=== PATIENT | male | born 1980 | race African-American/Black ===

== ENCOUNTER 2018-11-22 19:44 | Emergency (ER) | payer MEDICARE ==
[~2018-11-22] VITALS: Ht 177.8 cm; Wt 80.7 kg
[2018-11-22 20:02] VITALS: BP 142/92
[2018-11-22] MEDS ORDERED: BACLOFEN 10 MG TAB PO ONE (20:45)
[2018-11-22] MEDS ORDERED: methylPREDNISolone SOD SUCC 125 MG/2 ML VL IM ONE (20:45)
[2018-11-22] MEDS ORDERED: HYDROcodone-ACET 10/325MG TAB PO ONE (20:45)
== END 2018-11-22 21:09 | disposition home or self-care (01) ==
LOC: ER 19:50
DX: M51.26 Other intervertebral disc displacement, lumbar region (principal); F17.210 Nicotine dependence, cigarettes, uncomplicated
CPT/HCPCS: 72100; 96372; 99283; J2930

== ENCOUNTER 2018-12-10 00:05 | Emergency (ER) | payer MEDICAID ==
[~2018-12-10] VITALS: Ht 177.8 cm; Wt 79.4 kg
[2018-12-10 01:12] LABS: Basophils # (auto) 0 uL; Basophils % (auto) 0.7 % (0.0-2.0); Eosinophils # (auto) 0.1 uL; Eosinophils % (auto) 2.1 % (0.0-7.0); Hematocrit 44.7 % (41.0-53.0); Hemoglobin 14.8 g/dL (13.5-17.5); Lymphocytes # (auto) 2.4 uL; Lymphocytes % (auto) 36.5 % (10.0-50.0); Mean Corpuscular Hemoglobin 29.5 pg (28.0-32.0); Mean Corpuscular Volume 89.3 fL (80.0-100.0); Monocytes # (auto) 0.4 uL; Monocytes % (auto) 6.9 % (0.0-12.0); Neutrophils # (auto) 3.5 uL; Neutrophils % (auto) 53.8 % (37.0-80.0); Nucleated Red Blood Cells % 0.1 %; Platelet Count (auto) 180 10^3/uL (140-450); Red Blood Cells 5.01 10^6/uL (4.5-5.90); White Blood Cell 6.5 10^3/uL (4.4-10.8)
[2018-12-10 01:28] LABS: Albumin 3.8 g/dL (3.4-5.0); BUN/Creatinine Ratio 9.8; Calcium 8.6 mg/dL (8.5-10.1); Potassium 3.4 mmol/L (3.5-5.1)
[2018-12-10 01:31] LABS: Bilirubin, Total 0.3 mg/dL (0.2-1.0); Total Protein 8.5 g/dL (6.4-8.2)
[2018-12-10] MEDS ORDERED: FUROSEMIDE 20 MG TAB PO ONE ×2 (03:45→04:00)
[2018-12-10] MEDS ORDERED: methylPREDNISolone SOD SUCC 125 MG/2 ML VL IM ONE ×2 (03:45→04:00)
[2018-12-10] MEDS ORDERED: cefTRIAXone SOD 1,000 MG VL IM ONE ×2 (03:45→04:00)
[2018-12-10] MEDS ORDERED: HYDROcodone-ACET 10/325MG TAB PO ONE ×2 (03:45→04:00)
[2018-12-10] MEDS ORDERED: POTASSIUM CHL 20 Meq TABLET PO ONE ×2 (03:45→04:00)
[2018-12-10 04:11] VITALS: BP 133/95
== END 2018-12-10 04:49 | disposition home or self-care (01) ==
LOC: ER 00:05
DX: M79.605 Pain in left leg (principal); M79.604 Pain in right leg; H92.01 Otalgia, right ear; G44.201 Tension-type headache, unspecified, intractable
CPT/HCPCS: 36415; 80053; 81002; 83880; 85025; 96372; 99283; J0696; J2930

== ENCOUNTER 2019-05-31 14:21 | Emergency (ER) | payer MEDICAID ==
[~2019-05-31] VITALS: Ht 177.8 cm; Wt 77.1 kg
[2019-05-31 15:49] VITALS: BP 132/72
[2019-05-31] MEDS ORDERED: KETOROLAC TROMETH 60MG/2ML VIAL IM ONE (16:15)
[2019-05-31] MEDS ORDERED: METHOCARBAMOL 500 MG TAB PO ONE (16:15)
== END 2019-05-31 17:02 | disposition home or self-care (01) ==
LOC: EDBD 14:21 → ER 14:39
DX: M54.41 Lumbago with sciatica, right side (principal); F17.210 Nicotine dependence, cigarettes, uncomplicated
CPT/HCPCS: 72100; 96372; 99283; J1885

== ENCOUNTER 2019-09-09 03:02 | Emergency (ER) | payer MEDICAID ==
[~2019-09-09] VITALS: Ht 177.8 cm; Wt 74.8 kg
[2019-09-09 03:20] VITALS: BP 140/86
== END 2019-09-09 07:17 | disposition left against medical advice (07) ==
LOC: ER 03:03
DX: M79.673 Pain in unspecified foot (principal); Z53.21 Procedure and treatment not carried out due to patient leaving prior to being seen by health care provider
CPT/HCPCS: 82962

== ENCOUNTER → 2020-06-26 | Emergency (ER) | payer MEDICAID ==
[~2020-06-26] VITALS: Ht 177.8 cm; Wt 74.8 kg
[~2020-06-26] MED LIST: KETOROLAC TROMETH 30 MG/ML 1ML VIAL IV ONE
[2020-06-26 23:06] LABS: Basophils # (auto) 0 10 ^3/uL (0-0.2); Basophils % (auto) 0.7 % (0.0-2.0); Eosinophils # (auto) 0.2 10 ^3/uL (0-0.8); Hematocrit 38.9 % (41.0-53.0); Hemoglobin 13.2 g/dL (13.5-17.5); Lymphocytes # (auto) 2.4 10 ^3/uL (0.4-5.4); Lymphocytes % (auto) 39.9 % (10.0-50.0); Mean Corpuscular Hemoglobin 30.9 pg (28.0-32.0); Mean Corpuscular Hgb Conc. 33.9 g/dL (32.0-36.0); Monocytes # (auto) 0.6 10 ^3/uL (0-1.3); Neutrophils # (auto) 2.9 10 ^3/uL (1.6-8.6); Neutrophils % (auto) 47.4 % (37.0-80.0); Nucleated Red Blood Cells % 0.1 %; Platelet Count (auto) 176 10^3/uL (140-450); Red Blood Cells 4.27 10^6/uL (4.5-5.90); Red Cell Distribution Width 14.3 % (11.8-14.3); White Blood Cell 6.1 10^3/uL (4.4-10.8)
[2020-06-26 23:24] LABS: Albumin 3.5 g/dL (3.4-5.0); Calcium 8.7 mg/dL (8.5-10.1); Potassium 4.1 mmol/L (3.5-5.1)
[2020-06-26 23:26] LABS: BUN/Creatinine Ratio 13.8
[2020-06-26 23:28] LABS: Bilirubin, Total 0.2 mg/dL (0.2-1.0); Total Protein 7.3 g/dL (6.4-8.2)
[2020-06-27 01:00] VITALS: BP 114/86
[2020-06-27 01:36] LABS: Urine Amorphous Crystal FEW /hpf (None Seen); Urine Bacteria NONE SEEN /hpf (None Seen); Urine Blood Negative /uL (Negative); Urine Specific Gravity 1.022 (1.001-1.035); Urine WBC 6 /hpf (0 - 3)
== END | disposition home or self-care (01) ==
LOC: EDUNIT# 21:30 → EDBD 21:36 → ER 21:39
DX: S33.5XXA Sprain of ligaments of lumbar spine, initial encounter (principal); F17.210 Nicotine dependence, cigarettes, uncomplicated; X58.XXXA Exposure to other specified factors, initial encounter; Y93.89 Activity, other specified; Y92.89 Other specified places as the place of occurrence of the external cause; Y99.8 Other external cause status
CPT/HCPCS: 36415; 74176; 80053; 81001; 85025; 96374

== ENCOUNTER 2021-01-13 15:59 | Emergency (ER) | payer MEDICAID ==
[~2021-01-13] VITALS: Ht 177.8 cm; Wt 77.1 kg
[2021-01-13 18:14] VITALS: BP 136/83
== END 2021-01-13 18:13 | disposition home or self-care (01) ==
LOC: ER 15:59
DX: L03.116 Cellulitis of left lower limb (principal)
CPT/HCPCS: 93971

== ENCOUNTER 2021-07-04 05:20 | Emergency (ER) | payer MEDICAID ==
[~2021-07-04] VITALS: Ht 182.9 cm; Wt 83.9 kg
[2021-07-04 06:09] LABS: Basophils # (auto) 0 10 ^3/uL (0-0.2); Basophils % (auto) 0.7 % (0.0-2.0); Eosinophils # (auto) 0.2 10 ^3/uL (0-0.8); Eosinophils % (auto) 2.7 % (0.0-7.0); Hematocrit 39.9 % (41.0-53.0); Lymphocytes % (auto) 30.3 % (10.0-50.0); Mean Corpuscular Hemoglobin 29.5 pg (28.0-32.0); Mean Corpuscular Hgb Conc. 32.5 g/dL (32.0-36.0); Mean Corpuscular Volume 90.6 fL (80.0-100.0); Monocytes # (auto) 0.5 10 ^3/uL (0-1.3); Neutrophils % (auto) 59.3 % (37.0-80.0); Nucleated Red Blood Cells % 0.1 %; Red Cell Distribution Width 14.8 % (11.8-14.3); White Blood Cell 6.8 10^3/uL (4.4-10.8)
[2021-07-04 06:16] LABS: INR 1.07 (0.9-1.15); Partial Thromboplastin Time 25.4 sec (23.6-33.0)
[2021-07-04 06:20] LABS: Anion Gap 7 (5-15); Blood Urea Nitrogen 10 mg/dL (7-18); Calcium 8.1 mg/dL (8.5-10.1); Carbon Dioxide 27 mmol/L (21-32); Chloride 105 mmol/L (98-107); Glucose 139 mg/dL (74-106); Magnesium 2.2 mg/dL (1.6-2.6); Potassium 3.3 mmol/L (3.5-5.1); Sodium 139 mmol/L (136-145)
[2021-07-04 06:23] LABS: Alanine Aminotransferase 25 U/L (16-61); Aspartate Aminotransferase 21 U/L (15-37); BUN/Creatinine Ratio 8.7; GFR African American 89 mL/min; GFR Non-African American 74 mL/min
[2021-07-04 06:29] LABS: Alkaline Phosphatase 68 U/L (45-117); Bilirubin, Total 0.2 mg/dL (0.2-1.0); Total Protein 7.1 g/dL (6.4-8.2)
[2021-07-04] MEDS ORDERED: POTASSIUM EFFERVESENT TAB 25 MEQ PO ONE (12:15)
[2021-07-04 12:40] VITALS: BP 111/73
== END 2021-07-04 12:55 | disposition home or self-care (01) ==
LOC: EDBD 05:20 → ER 05:20
DX: L03.116 Cellulitis of left lower limb (principal); E87.6 Hypokalemia; I10 Essential (primary) hypertension; E46 Unspecified protein-calorie malnutrition; R73.9 Hyperglycemia, unspecified; Z68.25 Body mass index [BMI] 25.0-25.9, adult; Z88.8 Allergy status to other drugs, medicaments and biological substances
CPT/HCPCS: 36415; 71045; 80053; 83735; 83880; 84484; 85025; 85379; 85610; 85730; 93005; 93971

== ENCOUNTER 2021-11-22 10:07 | Emergency (ER) | payer MEDICAID ==
[~2021-11-22] VITALS: Ht 177.8 cm; Wt 86.2 kg
[2021-11-22 10:16] VITALS: BP 126/70
[2021-11-22 11:32] LABS: Basophils # (auto) 0 10 ^3/uL (0-0.2); Basophils % (auto) 0.7 % (0.0-2.0); Eosinophils # (auto) 0.1 10 ^3/uL (0-0.8); Eosinophils % (auto) 2.1 % (0.0-7.0); Hematocrit 39.8 % (41.0-53.0); Hemoglobin 13.2 g/dL (13.5-17.5); Lymphocytes # (auto) 1.6 10 ^3/uL (0.4-5.4); Lymphocytes % (auto) 27.4 % (10.0-50.0); Mean Corpuscular Hemoglobin 29.7 pg (28.0-32.0); Mean Corpuscular Hgb Conc. 33.2 g/dL (32.0-36.0); Mean Corpuscular Volume 89.3 fL (80.0-100.0); Monocytes # (auto) 0.4 10 ^3/uL (0-1.3); Monocytes % (auto) 6.1 % (0.0-12.0); Neutrophils # (auto) 3.7 10 ^3/uL (1.6-8.6); Neutrophils % (auto) 63.7 % (37.0-80.0); Nucleated Red Blood Cells % 0.1 %; Red Blood Cells 4.46 10^6/uL (4.5-5.90); Red Cell Distribution Width 14.4 % (11.8-14.3); White Blood Cell 5.8 10^3/uL (4.4-10.8)
[2021-11-22 11:45] LABS: Albumin 3.4 g/dL (3.4-5.0); Calcium 8.5 mg/dL (8.5-10.1); Potassium 4.1 mmol/L (3.5-5.1)
[2021-11-22 11:53] LABS: BUN/Creatinine Ratio 19.6; Bilirubin, Total 0.2 mg/dL (0.2-1.0); Total Protein 7.6 g/dL (6.4-8.2)
== END 2021-11-22 13:29 | disposition left against medical advice (07) ==
LOC: EDBD 10:07 → ER 10:07
DX: R07.89 Other chest pain (principal); Z88.6 Allergy status to analgesic agent
CPT/HCPCS: 36415; 80053; 83880; 84484; 85025; 93005

== ENCOUNTER 2022-02-05 16:26 | Emergency (ER) | payer MEDICAID ==
[~2022-02-05] VITALS: Ht 177.8 cm; Wt 81.6 kg
[2022-02-05 16:27] VITALS: BP 139/91
[2022-02-05] MEDS ORDERED: HYDROcodone-ACET 5/325MG TAB PO ONE (17:30)
[2022-02-05] MEDS ORDERED: HYDR-4902 PO (19:23)
== END 2022-02-05 19:27 | disposition home or self-care (01) ==
LOC: ER 16:26
DX: S23.3XXA Sprain of ligaments of thoracic spine, initial encounter (principal); S00.93XA Contusion of unspecified part of head, initial encounter; S60.221A Contusion of right hand, initial encounter; M54.50 Low back pain, unspecified; R51.9 Headache, unspecified; Z88.8 Allergy status to other drugs, medicaments and biological substances; V49.9XXA Car occupant (driver) (passenger) injured in unspecified traffic accident, initial encounter; Y93.89 Activity, other specified; Y92.410 Unspecified street and highway as the place of occurrence of the external cause; Y99.8 Other external cause status
CPT/HCPCS: 70450; 72128; 72131; 73120

== ENCOUNTER 2022-05-21 05:27 | Emergency (ER) | payer MEDICAID ==
[~2022-05-21] VITALS: Ht 172.7 cm; Wt 81.8 kg
[~2022-05-21 05:27] MED LIST changes: +HYDR-4902 PO; -KETOROLAC TROMETH 30 MG/ML 1ML VIAL IV ONE
[2022-05-21 06:56] LABS: Basophils # (auto) 0.1 10 ^3/uL (0-0.2); Basophils % (auto) 0.7 % (0.0-2.0); Eosinophils # (auto) 0.1 10 ^3/uL (0-0.8); Eosinophils % (auto) 1.5 % (0.0-7.0); Hematocrit 39.1 % (41.0-53.0); Hemoglobin 12.8 g/dL (13.5-17.5); Lymphocytes # (auto) 1.5 10 ^3/uL (0.4-5.4); Lymphocytes % (auto) 19.9 % (10.0-50.0); Mean Corpuscular Hemoglobin 29.1 pg (28.0-32.0); Mean Corpuscular Hgb Conc. 32.7 g/dL (32.0-36.0); Monocytes # (auto) 0.5 10 ^3/uL (0-1.3); Monocytes % (auto) 7.1 % (0.0-12.0); Neutrophils # (auto) 5.3 10 ^3/uL (1.6-8.6); Neutrophils % (auto) 70.8 % (37.0-80.0); Nucleated Red Blood Cells % 0.1 %; Red Blood Cells 4.39 10^6/uL (4.5-5.90); Red Cell Distribution Width 14.6 % (11.8-14.3); White Blood Cell 7.5 10^3/uL (4.4-10.8)
[2022-05-21 07:13] LABS: Albumin 3.5 g/dL (3.4-5.0); Calcium 8.8 mg/dL (8.5-10.1); Potassium 3.8 mmol/L (3.5-5.1)
[2022-05-21 07:18] LABS: BUN/Creatinine Ratio 18.3; Bilirubin, Total 0.3 mg/dL (0.2-1.0); Total Protein 8.1 g/dL (6.4-8.2)
[2022-05-21 10:20] VITALS: BP 122/83
[2022-05-21] MEDS ORDERED: IBU600T PO (10:21)
== END 2022-05-21 10:50 | disposition home or self-care (01) ==
LOC: EDBD 05:27 → ER 05:27
DX: T14.8XXA Other injury of unspecified body region, initial encounter (principal); F41.9 Anxiety disorder, unspecified; Z79.899 Other long term (current) drug therapy; Z88.8 Allergy status to other drugs, medicaments and biological substances; X58.XXXA Exposure to other specified factors, initial encounter; Y93.89 Activity, other specified; Y92.89 Other specified places as the place of occurrence of the external cause; Y99.8 Other external cause status
CPT/HCPCS: 36415; 80053; 83880; 84484; 85025; 93005

== ENCOUNTER 2022-06-04 00:31 | Emergency (ER) | payer MEDICAID ==
[~2022-06-04] VITALS: Ht 177.8 cm; Wt 81.8 kg
[~2022-06-04 00:31] MED LIST changes: +IBU600T PO
[2022-06-04 01:35] VITALS: BP 121/67
[2022-06-04] MEDS ORDERED: FURO1TAB31 PO (03:44)
[2022-06-04] MEDS ORDERED: BACDST PO (03:44)
== END 2022-06-04 04:05 | disposition home or self-care (01) ==
LOC: ER 00:31
DX: L03.115 Cellulitis of right lower limb (principal); R60.0 Localized edema; Z79.1 Long term (current) use of non-steroidal anti-inflammatories (NSAID); Z79.899 Other long term (current) drug therapy; Z88.8 Allergy status to other drugs, medicaments and biological substances

== ENCOUNTER 2022-07-04 01:03 | Emergency (ER) | payer MEDICAID ==
[~2022-07-04] VITALS: Ht 177.8 cm; Wt 80.0 kg
[~2022-07-04 01:03] MED LIST changes: +BACDST PO; +FURO1TAB31 PO
[2022-07-04] MEDS ORDERED: ASPirin 325 MG TAB PO ONE (01:15)
[2022-07-04 02:08] LABS: Basophils # (auto) 0.1 10 ^3/uL (0-0.2); Basophils % (auto) 0.8 % (0.0-2.0); Eosinophils # (auto) 0.2 10 ^3/uL (0-0.8); Eosinophils % (auto) 3.4 % (0.0-7.0); Hematocrit 40.4 % (41.0-53.0); Hemoglobin 13.7 g/dL (13.5-17.5); Lymphocytes # (auto) 2.1 10 ^3/uL (0.4-5.4); Lymphocytes % (auto) 32.2 % (10.0-50.0); Mean Corpuscular Hgb Conc. 33.8 g/dL (32.0-36.0); Mean Corpuscular Volume 88.7 fL (80.0-100.0); Monocytes # (auto) 0.5 10 ^3/uL (0-1.3); Monocytes % (auto) 7.2 % (0.0-12.0); Neutrophils # (auto) 3.8 10 ^3/uL (1.6-8.6); Neutrophils % (auto) 56.4 % (37.0-80.0); Nucleated Red Blood Cells % 0.1 %; Red Blood Cells 4.55 10^6/uL (4.5-5.90); Red Cell Distribution Width 14.9 % (11.8-14.3); White Blood Cell 6.6 10^3/uL (4.4-10.8)
[2022-07-04 02:31] LABS: Albumin 3.8 g/dL (3.4-5.0); Calcium 8.8 mg/dL (8.5-10.1); Potassium 4.1 mmol/L (3.5-5.1)
[2022-07-04 02:34] LABS: Bilirubin, Total 0.4 mg/dL (0.2-1.0); Total Protein 7.8 g/dL (6.4-8.2)
[2022-07-04 03:40] LABS: Urine Bacteria NONE SEEN /hpf (None Seen); Urine Blood Negative /uL (Negative); Urine Specific Gravity 1.006 (1.001-1.035); Urine WBC 2 /hpf (0 - 3)
[2022-07-04 03:51] LABS: Alcohol, Urine < 3.0 mg/dL (0-10); Amphetamine Screen, Urine POSITIVE (NEGATIVE); Barbiturate Scree,Urine NEGATIVE (NEGATIVE); Benzodiazephine Screen, Urine NEGATIVE (NEGATIVE); Cannabinoid Screen, Urine NEGATIVE (NEGATIVE); Cocaine Screen, Urine NEGATIVE (NEGATIVE); Opiate Scree,Urine NEGATIVE (NEGATIVE); Phencyclidine Screen, Urine NEGATIVE (NEGATIVE)
[2022-07-04 06:17] VITALS: BP 136/83
== END 2022-07-04 06:12 | disposition home or self-care (01) ==
LOC: EDBD 01:03 → ER 01:03
DX: R07.89 Other chest pain (principal); F41.9 Anxiety disorder, unspecified; Z79.1 Long term (current) use of non-steroidal anti-inflammatories (NSAID); Z79.899 Other long term (current) drug therapy; Z88.8 Allergy status to other drugs, medicaments and biological substances
CPT/HCPCS: 36415; 80053; 80307; 81001; 82962; 83880; 84484; 85025; 93005

== ENCOUNTER 2022-08-07 01:42 | Emergency (ER) | payer MEDICAID ==
[~2022-08-07] VITALS: Ht 177.8 cm; Wt 88.0 kg
[2022-08-07] MEDS ORDERED: KETOROLAC TROMETH 60MG/2ML VIAL IM ONE (07:00)
[2022-08-07] MEDS ORDERED: ACET-1080 PO (07:29)
[2022-08-07] MEDS ORDERED: GABA300C10 PO (07:29)
[2022-08-07 07:48] VITALS: BP 132/77
== END 2022-08-07 07:50 | disposition home or self-care (01) ==
LOC: EDBD 01:42 → EDUNIT# 01:42 → ER 01:46
DX: G89.29 Other chronic pain (principal); M54.16 Radiculopathy, lumbar region; M54.50 Low back pain, unspecified; Z79.1 Long term (current) use of non-steroidal anti-inflammatories (NSAID); Z79.899 Other long term (current) drug therapy; Z88.8 Allergy status to other drugs, medicaments and biological substances
CPT/HCPCS: 96372; 99283; J1885

== ENCOUNTER 2023-02-15 03:20 | Emergency (ER) | payer MEDICAID ==
[~2023-02-15] VITALS: Ht 182.9 cm; Wt 87.2 kg
[~2023-02-15 03:20] MED LIST changes: +ACET-1080 PO; +GABA300C10 PO
[2023-02-15 04:45] LABS: Basophils # (auto) 0.1 10 ^3/uL (0-0.2); Basophils % (auto) 0.7 % (0.0-2.0); Eosinophils # (auto) 0.2 10 ^3/uL (0-0.8); Eosinophils % (auto) 2.8 % (0.0-7.0); Hematocrit 37.1 % (41.0-53.0); Hemoglobin 12.2 g/dL (13.5-17.5); Lymphocytes # (auto) 2.2 10 ^3/uL (0.4-5.4); Lymphocytes % (auto) 26.7 % (10.0-50.0); Mean Corpuscular Hemoglobin 29.1 pg (28.0-32.0); Monocytes # (auto) 0.7 10 ^3/uL (0-1.3); Monocytes % (auto) 9.1 % (0.0-12.0); Neutrophils # (auto) 4.9 10 ^3/uL (1.6-8.6); Neutrophils % (auto) 60.7 % (37.0-80.0); Nucleated Red Blood Cells % 0.1 %; Red Blood Cells 4.22 10^6/uL (4.5-5.90); Red Cell Distribution Width 14.4 % (11.8-14.3); White Blood Cell 8.1 10^3/uL (4.4-10.8)
[2023-02-15 04:52] LABS: INR 1.04 (0.9-1.15); Partial Thromboplastin Time 29.7 sec (24.6-33.4)
[2023-02-15 04:58] LABS: Albumin 3.5 g/dL (3.4-5.0); Calcium 8.9 mg/dL (8.5-10.1); Magnesium 2.4 mg/dL (1.6-2.6); Potassium 3.8 mmol/L (3.5-5.1)
[2023-02-15 05:03] LABS: BUN/Creatinine Ratio 11.4 (10.0-20.0); Bilirubin, Total 0.3 mg/dL (0.2-1.0); Total Protein 7.7 g/dL (6.4-8.2)
[2023-02-15 08:49] VITALS: BP 138/87
[2023-02-15] MEDS ORDERED: FUROSEMIDE 20 MG TAB PO ONE (09:45)
[2023-02-15] MEDS ORDERED: HYDROcodone-ACET 5/325MG TAB PO ONE (09:45)
== END 2023-02-15 11:21 | disposition home or self-care (01) ==
LOC: ER 03:20 → EDBD 03:20 → ER 11:08
DX: R22.43 Localized swelling, mass and lump, lower limb, bilateral (principal); M79.605 Pain in left leg; M79.604 Pain in right leg; F12.10 Cannabis abuse, uncomplicated; Z88.6 Allergy status to analgesic agent
CPT/HCPCS: 36415; 71045; 80053; 83735; 83880; 84484; 85025; 85610; 85730; 93005; 93970

== ENCOUNTER 2024-02-20 14:39 | Emergency (ER) | payer MEDICAID ==
[~2024-02-20] VITALS: Ht 177.8 cm; Wt 90.7 kg
[~2024-02-20 14:39] MED LIST changes: +GABA-1250 PO; -GABA300C10 PO
[2024-02-20 14:55] VITALS: BP 143/88; PULSE 116; RESP 15; O2SAT 99
[2024-02-21] MEDS ORDERED: ACET500T58 PO (05:12)
== END 2024-02-20 18:20 | disposition left against medical advice (07) ==
LOC: ER 14:39
DX: M79.672 Pain in left foot (principal); Z53.21 Procedure and treatment not carried out due to patient leaving prior to being seen by health care provider; W50.0XXA Accidental hit or strike by another person, initial encounter; Y93.89 Activity, other specified; Y92.89 Other specified places as the place of occurrence of the external cause; Y99.8 Other external cause status

== ENCOUNTER 2024-02-21 00:51 | Emergency (ER) | payer MEDICAID ==
[~2024-02-21] VITALS: Ht 177.8 cm; Wt 91.6 kg
[2024-02-21 04:52] VITALS: BP 129/82; PULSE 101; RESP 16; TEMP 97.5; O2SAT 99
[2024-02-21] MEDS ORDERED: ACET500T58 PO (05:12)
== END 2024-02-21 05:21 | disposition home or self-care (01) ==
LOC: ER 00:51
DX: S93.505A Unspecified sprain of left lesser toe(s), initial encounter (principal); F15.90 Other stimulant use, unspecified, uncomplicated; Z88.8 Allergy status to other drugs, medicaments and biological substances; Z79.899 Other long term (current) drug therapy; W22.8XXA Striking against or struck by other objects, initial encounter; Y93.89 Activity, other specified; Y92.89 Other specified places as the place of occurrence of the external cause; Y99.8 Other external cause status
CPT/HCPCS: 73630

== ENCOUNTER 2024-12-21 01:31 | Emergency (ER) | payer OTHER, MEDICAID ==
[~2024-12-21] VITALS: Ht 177.8 cm; Wt 97.5 kg
[~2024-12-21 01:31] MED LIST changes: +ACET500T58 PO
[2024-12-21 02:12] LABS: Basophils # (auto) 0.1 10 ^3/uL (0-0.2); Basophils % (auto) 1.1 % (0.0-2.0); Eosinophils # (auto) 0.2 10 ^3/uL (0-0.8); Eosinophils % (auto) 2.2 % (0.0-7.0); Hematocrit 42.9 % (41.0-53.0); Hemoglobin 14.5 g/dL (13.5-17.5); Lymphocytes # (auto) 2.2 10 ^3/uL (0.4-5.4); Lymphocytes % (auto) 27.1 % (10.0-50.0); Mean Corpuscular Hemoglobin 30.3 pg (28.0-32.0); Mean Corpuscular Hgb Conc. 33.8 g/dL (32.0-36.0); Mean Corpuscular Volume 89.6 fL (80.0-100.0); Monocytes # (auto) 0.4 10 ^3/uL (0-1.3); Monocytes % (auto) 4.7 % (0.0-12.0); Neutrophils # (auto) 5.3 10 ^3/uL (1.6-8.6); Neutrophils % (auto) 64.9 % (37.0-80.0); Platelet Count (auto) 170 10^3/uL (140-450); Red Blood Cells 4.79 10^6/uL (4.5-5.90); Red Cell Distribution Width 15.1 % (11.8-14.3); White Blood Cell 8.1 10^3/uL (4.4-10.8)
[2024-12-21 02:21] LABS: Chloride 104 mmol/L (98-107); Potassium 3.5 mmol/L (3.5-5.1); Sodium 141 mmol/L (136-145)
[2024-12-21 02:22] VITALS: BP 157/73; TEMP 98
[2024-12-21 02:22] LABS: Anion Gap 8 (5-15); Calcium 9.5 mg/dL (8.7-10.4); Carbon Dioxide 29 mmol/L (20-31)
[2024-12-21 02:27] LABS: BUN/Creatinine Ratio 5.8 (10.0-20.0); Glucose 86 mg/dL (74-106)
[2024-12-21 02:29] LABS: Blood Urea Nitrogen 8 mg/dL (9-23)
--- NOTE | 2024-12-21 02:30 | DVH ---
Examination: BLDVT CLINICAL INDICATION: DVT rule out. COMPARISON: None. TECHNIQUE: Using real-time ultrasonic imaging and color Doppler the deep venous system of both lower extremities was studied from the level of the common femoral veins to the posterior tibial veins. FINDINGS: Ultrasound examination of bilateral common femoral veins, bilateral deep femoral veins, th e proximal, middle and distal segments of bilateral superficial femoral veins, bilateral popliteal ve ins, and bilateral posterior tibial veins reveal normal phasicity and compression and augmentation. No thrombus was visualized. IMPRESSION: There is no evidence of superficial or deep venous thrombosis in bilateral lower extremi ty venous systems. Electronically Signed 12/21/2024 02:28 Sherley Velasquez
[2024-12-21 02:32] LABS: Lactic Acid w/Reflex 2.1 mmol/L (0.4-2.0)
[2024-12-21] MEDS: KETOROLAC TROMETH 30 MG/ML 1ML VIAL IV ONE (02:55)
[2024-12-21] MEDS: FUROSEMIDE 40 MG/4 ML VIAL IV ONE (02:55)
[2024-12-21] MEDS: SODIUM CHLORIDE 0.9% 1,000 ML IV ONE (02:56)
[2024-12-21] MEDS ORDERED: IBUP-1455 PO (03:06)
[2024-12-21] MEDS ORDERED: FURO1TAB33 PO (03:06)
--- NOTE | 2024-12-21 03:06 | ED.PDOC ---
Musculoskeletal HPI Comments Patient is a 44-year-old male who arrives the ED today for evaluation of bilateral lower extremity swelling and left foot pain. Patient has a long history of vascular concerns and is [facility] being [facility]. patient arrives stating that he has had pain in the legs and was had more swelling. Patient denies any history of congestive heart failure. Patient denies any fever nausea or vomiting. Patient was mildly ta chycardic at arrival. Chief Complaint: Lower Extremity Time Seen by MD: 01:33 Primary Care Provider: Unknown Reviewed Notes: Nurses Notes Allergies: Coded Allergies: Ibuprofen (Verified Allergy, Unknown, 07/04/21) Home Meds Active Scripts Acetaminophen (Acetaminophen) 500 Mg Tab, 500 MG PO Q4HR PRN, #30 TAB 0 Refills Prov:TARA CHAPARRO 02/21/24 Gabapentin (Gabapentin) 300 Mg Cap, 1 CAP PO TID, #30 CAP 1 Refill Prov:BERNARDINO NAVA 08/07/22 Acetaminophen (Tylenol 8 Hour Arthritis) 650 Mg Tab, 650 MG PO TID, #30 TAB Prov:BERNARDINO NAVA 08/07/22 Furosemide (Lasix) 40 Mg Tab, 40 MG PO DAILY for 10 Days, #10 TAB Prov:PEGGY CHAVEZ 06/04/22 Sulfamethoxazole W/Trimethopri (Bactrim Ds Tablet) 1 Tab Tb, 1 TAB PO BID for 10 Days, #20 TAB Prov:PEGGY CHAVEZ 06/04/22 Ibuprofen Micronized (MOTRIN TABLET) 600 Mg Tb, 600 MG PO TID PRN for 5 Days, #15 TAB *Black box warning-NSAIDS can increase risk of NV & hypertension, GI irritation, ulceration, bleed, perferation. Do not use post cardiac surgery. Use short duration/lowest effective dose. Prov:HUMBLE VALENTE MD 05/21/22 Hydrocodone-Acetaminophen (Hydrocodone Bitartrate/AC 5-325 mg) 1 Tab Tab, 1 TAB PO QID, #20 TAB 0 Refills Prov:MITZI LOPEZ MD 02/05/22 Information Source: Patient Mode of Arrival: Ambulatory Location: Bilateral Extremity Location: Leg Timing: Months Prehospital treatment: Treatment Hand Dominance: Right Mechanism: Unknown Circumstances: Unknown Symptoms: Swelling, Pain DVT Risk Factors: NONE Past Medical History PAST MEDICAL HISTORY: Denies Past Medical History (Other): Vascular concerns Surgical History: Denies all surgeries Family History Family History: Unknown Social History Smoker: Non-Smoker Alcohol: Denies ETOH Use Drugs: Marijuana Lives In: Home Constitutional: denies: chills, diaphoresis, fatigue, fever, malaise, sweats, weakness, others EENTM: denies: blurred vision, double vision, ear bleeding, ear discharge, ear drainage, ear pain, ear ringing, eye pain, eye redness, hearing loss, mouth pain, mouth swelling, nasal discharge, nose bleeding, nose congestion, nose pain, photophobia, tearing, throat pain, throat swelling, voice changes, others Respiratory: denies: cough, hemoptysis, orthopnea, SOB at rest, shortness of breath, SOB with excertion, stridor, wheezing, others Cardiovascular: denies: chest pain, dizzy spells, diaphoresis, Dyspnea on exertion, edema, irregular heart beat, left arm pain, lightheadedness, palpitations, PND, syncope, others Gastrointestinal: denies: abdomen distended, abdominal pain, blood streaked bowels, constipated, diarrhea, dysphagia, difficulty swallowing, hematemesis, melena, nausea, poor appetite, poor fluid intake, rectal bleeding, rectal pain, vomiting, others Genitourinary: denies: burning, dysuria, flank pain, frequency, hematuria, incontinence, penile discharge, penile sore, pain, testicle pain, testicle swelling, urgency, others Neurological: denies: dizziness, fainting, headache, left sided numbness, left sided weakness, numbness, paresthesia, pre-existing deficit, right sided numbness, right sided weakness, seizure, speech problems, tingling, tremors, weakness, others Musculoskeletal: reports: others ( bilateral lower extremity swelling with left toe pain); denies: back pain, gout, joint pain, joint swelling, muscle pain, muscle stiffness, neck pain Integumetry: denies: bruises, change in color, change in hair/nails, dryness, laceration, lesions, lumps, rash, wounds, others Allergic/Immunocompromised: denies: Difficulty Healing, Frequent Infections, Hives, Itching, others Hematologic/Lymphatic: denies: anemia, blood clots, easy bleeding, easy bruising, swollen glands, others Endocrine: denies: excessive hunger, excessive sweating, excessive thirst, excessive urination, flushing, intolerance to cold, intolerance to heat, unexplained weight gain, unexplained weight loss, others Psychiatric: denies: anxiety, bipolar disorder, depression, hopeless, panic disorder, schizophrenia, sleepless, suicidal, others Physical Exam General Appearance: Moderate Distress ( [id number] distress due to anxiety related to his leg swelling and Pain), Normal HEENT: Normal ENT Inspection, Pharynx Normal, TMs Normal Neck: Full Range of Motion, Non-Tender, Normal, Normal Inspection Respiratory: Chest Non-Tender, Lungs Clear, No Accessory Muscle Use, No Respiratory Distress, Normal Breath Sounds Cardiovascular: No Edema, No JVD, No Murmur, No Gallop, Normal Peripheral Pulses, Regular Rate/Rhythm Breast Exam: Deferred Gastrointestinal: No Organomegaly, Non Tender, No Pulsatile Mass, Normal Bowel Sounds, Soft Genitalia: Deferred Pelvic: Deferred Rectal: Deferred Extremities: Other ( patient has a 1+ pitting edema noted to bilateral lower extremities. Taut skin from peripheral edema concerns. Left great toe is tender to palpation throughout. Mild edema noted. No ecchymosis. Patient can not bear weight.) Neurologic: Alert, No Motor Deficits, Normal Affect, Normal Mood, No Sensory Deficits Cerebellar Function: Normal Reflexes: Normal Skin: Dry, Normal Color, Warm Lymphatic: No Adenopathy Was a procedure done? Was a procedure done?: No Differential Diagnosis EXT Differential Diagnosis: Other ( Sepsis, electrolyte abnormality, CHF, peripheral edema, toe fracture, toe contusion) X-Ray, Labs, Meds, VS Vital Signs Date Time Temp Pulse Resp B/P (MAP) Pulse Ox O2 Delivery O2 Flow Rate FiO2 12/21/24 02:22 98.0 104 20 157/73 (101) 98 98.0 12/21/24 01:44 98.0 101 20 113/75 (88) 100 98.0 Lab Test 12/21/24 01:52 Range/Units White Blood Count 8.1 4.4-10.8 10^3/uL Red Blood Count 4.79 4.5-5.90 10^6/uL Hemoglobin 14.5 13.5-17.5 g/dL Hematocrit 42.9 41.0-53.0 % Mean Corpuscular Volume 89.6 80.0-100.0 fL Mean Corpuscular Hemoglobin 30.3 28.0-32.0 pg Mean Corpuscular Hemoglobin Concent 33.8 32.0-36.0 g/dL Red Cell Distribution Width 15.1 H 11.8-14.3 % Platelet Count 170 140-450 10^3/uL Mean Platelet Volume 9.1 6.9-10.8 fL Neutrophils (%) (Auto) 64.9 37.0-80.0 % Lymphocytes (%) (Auto) 27.1 10.0-50.0 % Monocytes (%) (Auto) 4.7 0.0-12.0 % Eosinophils (%) (Auto) 2.2 0.0-7.0 % Basophils (%) (Auto) 1.1 0.0-2.0 % Neutrophils # (Auto) 5.3 1.6-8.6 10 ^3/uL Lymphocytes # (Auto) 2.2 0.4-5.4 10 ^3/uL Monocytes # (Auto) 0.4 0-1.3 10 ^3/uL Eosinophils # (Auto) 0.2 0-0.8 10 ^3/uL Basophils # (Auto) 0.1 0-0.2 10 ^3/uL Nucleated Red Blood Cells 0.0 % Sodium Level 141 136-145 mmol/L Potassium Level 3.5 3.5-5.1 mmol/L Chloride Level 104 98-107 mmol/L Carbon Dioxide Level 29 20-31 mmol/L Anion Gap 8 5-15 Blood Urea Nitrogen 8 L 9-23 mg/dL Creatinine 1.37 H 0.700-1.30 mg/dL Glomerular Filtration Rate Calc 64 >90 mL/min BUN/Creatinine Ratio 5.8 L 10.0-20.0 Serum Glucose 86 74-106 mg/dL Lactic Acid Level 2.1 *H 0.4-2.0 mmol/L Calcium Level 9.5 8.7-10.4 mg/dL Troponin I High Sensitivity 6 </=54 ng/L B-Type Natriuretic Peptide 2.84 0-100 pg/mL X-Ray, Labs, Meds, VS Comment All studies performed the ED were evaluated by me personally. Doppler studies of bilateral lower extremities ruled out any DVT formation. Laboratories were only remarkable for a mild elevated Lactic acid. Imaging studies were unremarkable for any acute fractures of the toe. Patient appears to have vascular concerns that he needs to continue [facility] for [facility]. Time of 1ST Reevaluation: 03:03 Reevaluation 1ST: Improved Consultation: PCP Patient Education/Counseling: Diagnosis, Treatment Family Education/Counseling: Diagnosis, Treatment Departure 1 Departure Time of Disposition: 03:04 Impression: Primary Impression: Lower extremity edema Additional Impression: Toe contusion Disposition: HOME / SELF CARE / HOMELESS Condition: Stable Additional Instructions: Advised patient utilize medication as directed until completion. Patient needs to follow up with his primary care provider for continued evaluation of bilateral lower extremity edema concerns. e-Prescriptions Ibuprofen Micronized (Ibuprofen) 800 Mg Tab 800 MG PO Q8HP PRN, #20 TAB Prov: EMELINA FLYNN PAC 12/21/24 Furosemide (Lasix) 20 Mg Tb 1 TAB PO DAILY, #15 TAB 0 Refills Prov: EMELINA FLYNN 12/21/24 Discharged With: Self Critical Care Note Critical Care Time?: No Stability Stability form required: No Heart Score Heart Score: Heart Score Response (Comments) Value History Slightly Suspicious [address]-Deviation 2 Age 45-64 1 Risk Factors 1 or 2 risk factors 1 Troponin Normal limit 0 Total 4 EMELINA FLYNN PAC Dec 21, 2024 03:06
[2024-12-21 03:40] VITALS: PULSE 84
[2024-12-21 04:19] VITALS: RESP 20; O2SAT 96
--- NOTE | 2024-12-21 04:32 | DVH ---
EXAM: XY L FOOT 3 VIEW XRAY HISTORY: Toe fracture COMPARISON: XY L FOOT 3 VIEW XRAY on DOS: 02/21/24 TECHNIQUE: Three views of the left foot were performed. FINDINGS: No acute fracture or dislocation are identified about the left foot. Hallux valgus. IMPRESSION: 1. No acute fracture of the left foot.
--- NOTE | 2024-12-24 13:13 | ECG ---
[facility] Test Date: 2024-12-21 Test Time: 03:09:27 Pat Name: EB WILLIAMSON Department: ER Room: Gender: M Information Technology Teacher: MICHAEL : 1980 Requested By: EMELINA FLYNN Order Number: [id number] Reading MD: Measurements Intervals Busy Rate: 84 P: 22 WY: 172 QRS: -12 QRSD: 87 T: 46 QT: 347 QTc: 411 Interpretive Statements Sinus rhythm Please click the below link to view image of tracing.
== END 2024-12-21 04:20 | disposition home or self-care (01) ==
LOC: ER 01:31
DX: S90.122A Contusion of left lesser toe(s) without damage to nail, initial encounter (principal); R60.0 Localized edema; F12.90 Cannabis use, unspecified, uncomplicated; Z88.6 Allergy status to analgesic agent; Z79.899 Other long term (current) drug therapy; X58.XXXA Exposure to other specified factors, initial encounter; Y93.89 Activity, other specified; Y92.89 Other specified places as the place of occurrence of the external cause; Y99.8 Other external cause status
CPT/HCPCS: 36415; 73630; 80048; 83605; 83880; 84484; 85025; 93005; 93970; 96361; 96374; 96375; 99285; J1885; J1940; J7030